=== PATIENT | male | born 1960 | race Caucasian/White ===

== ENCOUNTER → 2016-10-14 | Outpatient (CLI) | payer BC | END | disposition home or self-care (01) | LOC: LABWHC1 10:44 | PROVIDERS: ATTEND Urology | DX: R97.20 Elevated prostate specific antigen [PSA] (principal) | CPT/HCPCS: 36415; 84153 ==

== ENCOUNTER 2020-10-23 07:45 | Day surgery (SDC) | payer BC, MEDICARE ==
[2020-10-18 10:32] VITALS: BMI 30.9
[~2020-10-23 07:45] MED LIST: LACTATED RINGERS 1,000 ML IV SCH; ONDANSETRON 4 MG/2 ML VIAL IVP PRN
[2020-10-23 08:07] VITALS: TEMP 97.7
[2020-10-23] MEDS ORDERED: LIDOCAINE 1% (10MG/ML) FOR IV START INTRADERMA ONE (08:25)
[2020-10-23] MEDS ORDERED: PROPOFOL 10 MG/ML 20 ML VIAL IV ONE (08:47)
--- NOTE | 2020-10-23 08:51 | P.GSHP ---
History of Present Illness H&P Date: 10/23/20 Chief Complaint: Epigastric pain, screening Patient here today for upper and lower endoscopy. Patient has had some upper abdominal pain. History of gastric ulcer in his teens. Feeling better lately. No rectal bleeding or melena. No bowel complaints. No family history of colon cancer. He has not had a colonoscopy. Past Medical History Past Medical History: GERD/Reflux, Hypertension, Prostate Disorder, Thyroid Disorder Additional Past Medical History / Comment(s): Old hx gastric ulcer. Pain knees, hips. History of Any Multi-Drug Resistant Organisms: None Reported Past Surgical History: Hernia Repair, Joint Replacement Additional Past Surgical History / Comment(s): Hernia as child. EGD. Total Rt knee. Past Anesthesia/Blood Transfusion Reactions: No Reported Reaction Smoking Status: Former smoker - Past Family History Mother Family Medical History: Myocardial Infarction (VT) Medications and Allergies Home Medications Medication Instructions Recorded Confirmed Type Cholecalciferol [Vitamin D3 (25 50 mcg PO DAILY 10/18/20 10/18/20 History Mcg = 1000 Iu)] Docusate Calcium [Surfak] 500 mg PO DAILY 10/18/20 10/18/20 History HYDROcodone/APAP 10-325MG [Kohler 1 tab PO QID PRN 10/18/20 10/18/20 History 10-325] Hydrochlorothiazide 12.5 mg PO DAILY 10/18/20 10/18/20 History [hydroCHLOROthiazide] Levothyroxine Sodium [Synthroid] 150 mcg PO DAILY 10/18/20 10/18/20 History Omeprazole Magnesium [PriLOSEC OTC] 20 mg PO DAILY 10/18/20 10/18/20 History Tamsulosin HCl [Flomax] 0.8 mg PO DAILY 10/18/20 10/18/20 History clonazePAM [KlonoPIN] 1 mg PO BID 10/18/20 10/18/20 History fluvoxaMINE MALEATE [Fluvoxamine 50 mg PO DAILY 10/18/20 10/18/20 History Maleate] fluvoxaMINE MALEATE [Fluvoxamine 100 mg PO HS 10/18/20 10/18/20 History Maleate] Allergies Allergy/AdvReac Type Severity Reaction Status Date / Time No Known Allergies Allergy Verified 10/23/20 08:07 Surgical - Exam Vital Signs Temp Pulse Resp BP Pulse Ox 97.7 F 71 18 142/79 98 10/23/20 08:02 10/23/20 08:02 10/23/20 08:02 10/23/20 08:02 10/23/20 08:02 Physical exam: General: Well-developed, well-nourished HEENT: Normocephalic, sclerae nonicteric Abdomen: Nontender, nondistended Extremities: No edema Neuro: Alert and oriented Assessment and Plan (1) Colon cancer screening Narrative/Plan: Will proceed with upper and lower endoscopy Current Visit: Yes Status: Acute Code(s): Z12.11 - ENCOUNTER FOR SCREENING FOR MALIGNANT NEOPLASM OF COLON SNOMED Code(s): 910653346
--- NOTE | 2020-10-23 09:10 | P.PCN ---
Date of Procedure: 10/23/20 Procedure(s) Performed: PREOPERATIVE DIAGNOSIS: Epigastric pain, screening POSTOPERATIVE DIAGNOSIS: Mild gastritis, normal colon PROCEDURE: 1. EGD with biopsy 2. Colonoscopy ANESTHESIA: MAC SURGEON: Chun Gill M.D. SPECIMENS: Antrum ENDOSCOPIC PROCEDURE: The patient was on the endoscopy table in the left decubitus position. The Olympus gastroscope was inserted into the oropharynx and passed under direct visualization to the region of the third portion of the duodenum. From that point the scope was slowly withdrawn inspecting all surfaces carefully. There were no neoplastic inflammatory or polypoid lesions throughout the duodenum. The pylorus was widely patent. The stomach was carefully inspected. There was gastritis present. A biopsy of the antrum took place to rule out H. pylori. Retroflexion revealed a normal hiatus. The esophagus was then carefully examined. There were no neoplastic inflammatory or polypoid lesions throughout the visualized esophagus. The patient was kept on the endoscopy table in the left decubitus position. The Olympus colonoscope was inserted into the anus and passed under direct visualization to the base of the cecum. The appendiceal orifice was visualized. From that point the scope was slowly withdrawn inspecting all surfaces carefully. There were no neoplastic inflammatory or polypoid lesions throughout the cecum, ascending, transverse, descending, sigmoid and rectum. There was no visible diverticulosis noted. Digital rectal examination was normal. The patient was taken to the recovery room in stable condition per anesthesia guidelines. RECOMMENDATIONS: Await biopsy results. Resume diet. Follow-up colonoscopy 10 years.
[2020-10-23 09:40] VITALS: BP 124/72; PULSE 69; RESP 16
== END 2020-10-23 10:30 | disposition home or self-care (01) ==
LOC: ORWHC2ENDO 07:45
PROVIDERS: ATTEND Surgery
DX: Z12.11 Encounter for screening for malignant neoplasm of colon (principal); K29.50 Unspecified chronic gastritis without bleeding; K21.9 Gastro-esophageal reflux disease without esophagitis; I10 Essential (primary) hypertension; N40.0 Benign prostatic hyperplasia without lower urinary tract symptoms; E07.9 Disorder of thyroid, unspecified; Z87.11 Personal history of peptic ulcer disease; M25.562 Pain in left knee; M25.561 Pain in right knee; M25.552 Pain in left hip; M25.551 Pain in right hip; Z96.651 Presence of right artificial knee joint; Z98.890 Other specified postprocedural states; Z87.891 Personal history of nicotine dependence; I25.2 Old myocardial infarction; Z79.890 Hormone replacement therapy; Z79.899 Other long term (current) drug therapy
CPT/HCPCS: 88305; 43239; J2704; G0121; 45378